=== PATIENT | female | born 1985 | race Two or more races ===

== ENCOUNTER 2024-05-28 05:39 | Emergency (ER) | payer MEDICAID, OTHER ==
[~2024-05-28] VITALS: Ht 157.5 cm; Wt 63.6 kg
--- NOTE | 2024-05-28 06:52 | ED.PDOC ---
HPI Allergic reaction HPI Comments This is a pleasant 39-year-old female with no pertinent MHx that presents for a possible allergic reaction x1 day. Possible causes unknown Never had this before Patient noticed a rash upon waking up yesterday morning and reports it is a symptoms at been gradually worsening since. Initially the rash started on her anterior chest wall and began to spread. Patient then took 25 mg of Benadryl with some improvement however patient then reports symptoms worsened again after eating peanuts few hours later Denies CP/SOB Chief Complaint: Allergic Reaction Time Seen by MD: 06:28 Reviewed Notes: Nurses Notes, Medications, Allergies Allergies: Coded Allergies: NO KNOWN ALLERGIES (Unverified , 05/28/24) Home Meds Active Scripts Triamcinolone Acetonide (Triamcinolone Acetonide) 0.1 % Cre, 1 APPLIC EX BID for 7 Days, #60 GRAMS 0 Refills Prov:BRYCE GUTIERREZ NP 05/28/24 Hydroxyzine Hcl (Hydroxyzine Hcl) 25 Mg Tab, 1 TAB PO TIDPRN PRN for 10 Days, # 30 TAB 0 Refills Prov:BRYCE GUTIERREZ NP 05/28/24 Prednisone (Prednisone) 20 Mg Tab, 60 MG PO DAILY for 5 Days, #15 TAB 0 Refills Prov:BRYCE GUTIERREZ NP 05/28/24 Information Source: Patient Mode of Arrival: Ambulatory Family History Family History: Reviewed,noncontributory to illness Social History Smoker: Non-Smoker Alcohol: Denies ETOH Use Drugs: Denies Drug Use All Other Systems: Reviewed and Negative (Per HPI) Physical Exam General Appearance: No Apparent Distress, Normal HEENT: Normal ENT Inspection, Pharynx Normal, TMs Normal Neck: Full Range of Motion, Non-Tender, Normal, Normal Inspection Respiratory: Chest Non-Tender, Lungs Clear, No Accessory Muscle Use, No Respiratory Distress, Normal Breath Sounds Cardiovascular: No Edema, No JVD, No Murmur, No Gallop, Normal Peripheral Pulses, Regular Rate/Rhythm Breast Exam: Deferred Gastrointestinal: No Organomegaly, Non Tender, No Pulsatile Mass, Normal Bowel Sounds, Soft Genitalia: Deferred Pelvic: Deferred Rectal: Deferred Extremities: No calf tenderness, Normal capillary refill, Normal inspection, Normal range of motion, Non-tender, No pedal edema Musculoskeletal : Apperance: Normal Neurologic: Alert, No Motor Deficits, Normal Affect, Normal Mood, No Sensory Deficits Cerebellar Function: Normal Reflexes: Normal Skin: Dry, Normal Color, Rash (scattered hives ), Warm Lymphatic: No Adenopathy Was a procedure done? Was a procedure done?: No Differential diagnosis (all) Differential Diagnosis: Anaphylaxis, Angioedema, Contact Dermatitis, Urticaria X-Ray, Labs, Meds, VS Vital Signs Date Time Temp Pulse Resp B/P (MAP) Pulse Ox O2 Delivery O2 Flow Rate FiO2 05/28/24 07:29 99 18 98 Room Air 05/28/24 07:29 98.0 99 18 131/69 (89) 98 98.0 05/28/24 05:45 98.0 99 18 131/69 (89) 98 Current Medications Medications (Trade) Dose Ordered Sig/Mani Route Start Time Stop Time Status Last Admin Methylprednisolone Sodium Succinate (Solu Medrol) 125 mg ONCE ONCE IV 05/28/24 07:00 05/28/24 07:01 DC 05/28/24 07:01 Famotidine (Pepcid Injection) 20 mg ONCE ONCE IV 05/28/24 07:00 05/28/24 07:01 DC 05/28/24 07:01 Diphenhydramine HCl (Benadryl Injection) 25 mg ONCE ONCE IV 05/28/24 07:00 05/28/24 07:01 DC 05/28/24 07:01 Epinephrine HCl 0.3 mg ONCE ONCE IM 05/28/24 08:30 05/28/24 08:31 DC 05/28/24 08:34 X-Ray, Labs, Meds, VS Comment Patient presents with allergic reaction/urticaria. The patient has had NO clear precipitant for their rash including no medication or new detergent or topical exposure. History and physical exam consistent with allergic reaction. Patient protecting airway, no uvular or laryngeal edema present. No evidence of multiorgan involvement present. No respiratory distress. Low suspicion for toxic shock syndrome, anaphylaxis, asthma exacerbation, or drug toxicity. Patient given benadryl 50 mg IV Solumedrol 125 mg IV Famotidine IV. Patient observed in the ER for few hours with improvement of symptoms. Epinephrine was then given. Reassessment showed no respiratory distress, no airway compromise. Tolerated medications w/ no SE Vital signs remained stable. Informed patient second encounter with allergy could cause more severe and life-threatening symptoms such as shortness of breath and difficulty breathing. Medrol Dosepak prescribed additional treatment. Patient was instructed to take hydroxyzine and use calamine lotion as needed for itchiness. 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 ED precautions discussed including angioedema, vomiting, abdominal pain or difficulty breathing On reevaluation, patient had symptomatic improvement. Patient is stable for discharge at this time. External notes reviewed. Test results and diagnostic imaging interpreted. All diagnostic findings, discharge care, education and instructions provided Follow-up with PCP in 2 to 3 days Patient verbalized understanding and agreed to treatment plan Vital signs stable, afebrile, no acute distress noted Patient ambulatory with strong steady gait Advised to return precautions for any new or worsening symptoms, return to ER immediately for re-evaluation Patient is aware that the purpose of this visit was for an acute medical emergency requiring emergent stabilization. Chronic conditions, including malignancies have not been ruled out. Patient is instructed to follow up with PCP as directed and discharge instructions for continued care and workup. If unable to arrange follow-up, patient is to return to the emergency department for reassessment. Patient (parent or legal guardian if applicable) was given verbal and written discharge instructions and acknowledges understanding. Time of 1ST Reevaluation: 10:00 Reevaluation 1ST: Improved Patient Education/Counseling: Diagnosis, Treatment Family Education/Counseling: Diagnosis, Treatment Departure 1 Departure Time of Disposition: 10:12 Impression: Primary Impression: Acute urticaria Disposition: HOME / SELF CARE / HOMELESS Condition: Fair e-Prescriptions Triamcinolone Acetonide (Triamcinolone Acetonide) 0.1 % Cre 1 APPLIC EX BID for 7 Days, #60 GRAMS 0 Refills Prov: BRYCE GUTIERREZ NP 05/28/24 Hydroxyzine Hcl (Hydroxyzine Hcl) 25 Mg Tab 1 TAB PO TIDPRN PRN for 10 Days, #30 TAB 0 Refills Prov: BRYCE GUTIERREZ NP 05/28/24 Prednisone (Prednisone) 20 Mg Tab 60 MG PO DAILY for 5 Days, #15 TAB 0 Refills Prov: BRYCE GUTIERREZ NP 05/28/24 Critical Care Note Critical Care Time?: No Stability Stability form required: No Heart Score Heart Score: Heart Score Response (Comments) Value History N/A 0 EKG N/A 0 Age N/A 0 Risk Factors N/A 0 Troponin N/A 0 Total 0 BRYCE GUTIERREZ NP May 28, 2024 06:52
[2024-05-28] MEDS: diphenhdrAMINE HCL 50 MG/1 ML VL IV ONE (07:01)
[2024-05-28] MEDS: FAMOTIDINE (10MG/ML) 2ML VL IV ONE (07:01)
[2024-05-28] MEDS: methylPREDNISolone SOD SUCC 125 MG/2 ML VL IV ONE (07:01)
[2024-05-28 07:29] VITALS: BP 131/69; PULSE 99; RESP 18; TEMP 98; O2SAT 98
[2024-05-28] MEDS: EPINEPHrine HCL 1 MG/1 ML AMP IM ONE (08:34)
[2024-05-28] MEDS ORDERED: PRED20TA2 PO (10:13)
[2024-05-28] MEDS ORDERED: TRIO1TP EX (10:13)
[2024-05-28] MEDS ORDERED: HYDR-3682 PO (10:13)
== END 2024-05-28 10:20 | disposition home or self-care (01) ==
LOC: ER 05:39
DX: L50.9 Urticaria, unspecified (principal)
CPT/HCPCS: 96372; 96374; 96375; 99284; J0171; J1200; J2919; J3490

== ENCOUNTER 2024-06-03 20:18 | Emergency (ER) | payer MEDICAID ==
[~2024-06-03] VITALS: Ht 157.5 cm; Wt 64.9 kg
[~2024-06-03 20:18] MED LIST: HYDR-3682 PO; PRED20TA2 PO; TRIO1TP EX
[2024-06-03] MEDS ORDERED: PRED20TA2 PO (22:32)
--- NOTE | 2024-06-03 22:33 | ED.PDOC ---
HPI Allergic reaction HPI Comments 39-year-old female complaining of rash on arms and back. Patient states she was seen on the for similar rash. She was started on prednisone and hydroxyzine. States she was started to see some improvement then Monday she was started decreasing the prednisone. And then today the rash came back. No new foods no new medications. He was scheduled appointment with primary care doctor for allergy testing. Denies any trouble breathing. Chief Complaint: Allergic Reaction Time Seen by MD: 21:43 Reviewed Notes: Nurses Notes Allergies: Coded Allergies: NO KNOWN ALLERGIES (Unverified , 05/28/24) Home Meds Active Scripts Triamcinolone Acetonide (Triamcinolone Acetonide) 0.1 % Cre, 1 APPLIC EX BID for 7 Days, #60 GRAMS 0 Refills Prov:BRYCE GUTIERREZ NP 05/28/24 Hydroxyzine Hcl (Hydroxyzine Hcl) 25 Mg Tab, 1 TAB PO TIDPRN PRN for 10 Days, #30 TAB 0 Refills Prov:BRYCE GUTIERREZ NP 05/28/24 Prednisone (Prednisone) 20 Mg Tab, 60 MG PO DAILY for 5 Days, #15 TAB 0 Refills Prov:BRYCE GUTIERREZ NP 05/28/24 Information Source: Patient Mode of Arrival: Ambulatory Past Medical History PAST MEDICAL HISTORY: Denies Surgical History: Denies all surgeries FORENSICS ANALYST History: No Pertinent FORENSICS ANALYST History Family History Family History: Reviewed,noncontributory to illness Social History Smoker: Non-Smoker Alcohol: Denies ETOH Use Drugs: Denies Drug Use Constitutional: denies: chills, diaphoresis, fatigue, fever, malaise, sweats, weakness, others EENTM: denies: blurred vision, double vision, ear bleeding, ear discharge, ear drainage, ear pain, ear ringing, eye pain, eye redness, hearing loss, mouth pain, mouth swelling, nasal discharge, nose bleeding, nose congestion, nose cristina n, photophobia, tearing, throat pain, throat swelling, voice changes, others Respiratory: denies: cough, hemoptysis, orthopnea, SOB at rest, shortness of breath, SOB with excertion, stridor, wheezing, others Cardiovascular: denies: chest pain, dizzy spells, diaphoresis, Dyspnea on exertion, edema, irregular heart beat, left arm pain, lightheadedness, palpitations, PND, syncope, others Gastrointestinal: denies: abdomen distended, abdominal pain, blood streaked bowels, constipated, diarrhea, dysphagia, difficulty swallowing, hematemesis, melena, nausea, poor appetite, poor fluid intake, rectal bleeding, rectal pain, vomiting, others Genitourinary: denies: abnormal vagina bleeding, burning, dyspareunia, dysuria, flank pain, frequency, hematuria, incontinence, pain, , vagina discharge, urgency, others Neurological: denies: dizziness, fainting, headache, left sided numbness, left sided weakness, numbness, paresthesia, pre-existing deficit, right sided numbness, right sided weakness, seizure, speech problems, tingling, tremors, weakness, others Musculoskeletal: denies: back pain, gout, joint pain, joint swelling, muscle pain, muscle stiffness, neck pain, others Integumetry: reports: rash; denies: bruises, change in color, change in hair/nails, dryness, laceration, lesions, lumps, wounds, others Physical Exam General Appearance: No Apparent Distress, Normal HEENT: Normal ENT Inspection, Pharynx Normal, TMs Normal Neck: Full Range of Motion, Non-Tender, Normal, Normal Inspection Respiratory: Chest Non-Tender, Lungs Clear, No Accessory Muscle Use, No Respiratory Distress, Normal Breath Sounds Cardiovascular: No Edema, No JVD, No Murmur, No Gallop, Normal Peripheral Pulses, Regular Rate/Rhythm Breast Exam: Deferred Gastrointestinal: No Organomegaly, Non Tender, No Pulsatile Mass, Normal Bowel Sounds, Soft Genitalia: Deferred Pelvic: Deferred Rectal: Deferred Extremities: No calf tenderness, Normal capillary refill, Normal inspection, Normal range of motion, Non-tender, No pedal edema Musculoskeletal : Apperance: Normal Neurologic: Alert, overhead foreman II-XII nml as Tested, No Motor Deficits, Normal Affect, Normal Mood, No Sensory Deficits Cerebellar Function: Normal Reflexes: Normal Skin: Dry, Normal Color, Rash (Flat macular rash noted on bilateral upper extremities and torso. Blanching. Nonvesicular.), Warm Lymphatic: No Adenopathy Was a procedure done? Was a procedure done?: No Differential diagnosis (all) Differential Diagnosis: Anaphylaxis, Angioedema, Drug Reaction, Hypotension X-Ray, Labs, Meds, VS Vital Signs Date Time Temp Pulse Resp B/P (MAP) Pulse Ox O2 Delivery O2 Flow Rate FiO2 06/03/24 21:45 99.4 78 18 110/90 (97) 97 X-Ray, Labs, Meds, VS Comment Imaging: X-rays and CT scans were reviewed and interpreted by this provider, imaging shows no fractures and no pathological disease. Pending radiology review. Laboratory: Labs reviewed and interpreted by this provider. No significant abnormalities noted. Patient has prior medical visits reviewed. Med reconciliation performed Vital signs reviewed Time of 1ST Reevaluation: 22:33 Reevaluation 1ST: Improved Patient Education/Counseling: Diagnosis, Treatment, Need For Follow Up (Patient advised to follow-up in the emergency room in the next 24 to 48 hours if symptoms do not improve. Advised follow-up with PCP in the next 3 to 5 days. Patient verbalized understanding. ) Family Education/Counseling: Diagnosis, Treatment Departure 1 Departure Time of Disposition: 22:32 Impression: Primary Impression: Acute urticaria Disposition: HOME / SELF CARE / HOMELESS Condition: Fair e-Prescriptions Prednisone (Prednisone) 20 Mg Tab 20 MG PO DAILY for 4 Days, #4 MG Prov: MASTER HADDAD 06/03/24 Discharged With: Self Critical Care Note Critical Care Time?: No Stability Stability form required: No Heart Score Heart Score: Heart Score Response (Comments) Value History N/A 0 EKG N/A 0 Age N/A 0 Risk Factors N/A 0 Troponin N/A 0 Total 0 MASTER HADDAD Jun 03, 2024 22:33
[2024-06-03 22:43] VITALS: BP 111/72; TEMP 98.3
[2024-06-03 22:49] VITALS: PULSE 87; RESP 19; O2SAT 99
== END 2024-06-03 22:53 | disposition home or self-care (01) ==
LOC: ER 20:18
DX: L50.9 Urticaria, unspecified (principal)